=== PATIENT | female | born 1940 | race Caucasian/White ===

== ENCOUNTER → 2017-05-04 | Outpatient (CLI) | payer MEDICARE, BC ==
--- NOTE | 2017-05-05 17:07 | XCELERA REPORT ---
[address] [address] Lower Extremity Arterial Evaluation Name: XAVI MIZRA Age: 76 yrs Gender: Female : 1940 Patient Status: Outpatient Patient Location: Study Date: 05/04/2017 07:54 AM Procedure: A color flow and duplex scan of the lower extremity arteries was performed bilaterally with velocity and waveform anaylsis. Ankle brachial indicies performed. Reason For Study: ULCER Ordering Physician: EAN KENYON Performed By: Lo Mercedes Measurements and Calculations Right Left RADAR MECHANIC PSV 159.8 118.8 cm/sec Prox PFA PSV -80.5 -71.6 cm/sec Prox SFA PSV 104.8 92.3 cm/sec Mid SFA PSV -106.4 -122.6 cm/sec Dist SFA PSV -101.5 -93.0 cm/sec Prox Pop A PSV 76.6 65.1 cm/sec Dist TANNA PSV 94.3 46.8 cm/sec Dist CAR CUSTOMIZER PSV 88.8 90.8 cm/sec [place] Pedis PSV 39.0 62.6 cm/sec Right Side Arterial Evaluation Normal velocity and triphasic waveforms noted from the Common Femoral artery to the Anterior Tibial artery. Biphasic in the Posterior Tibial Dorsalis Pedis. 0-19% stenosis at the Posterior Tibial and Dorsalis Pedis arteries. Ankle Brachial index is 1.2. PPG's are normal. Left Side Arterial Evaluation Normal velocity and triphasic waveforms noted from the Common Femoral artery to the Popliteal artery. Biphasic in the infrageniculate vessels . 0-19% stenosis in the infrageniculate vessels. Ankle Brachial index was not done due to pain, presence of dressings.. Interpretation Summary Mild hemodynamically significant lesions in the bilateral lower extremities, on duplex imaging, at rest. : EAN KENYON > Antonio Pendleton
== END ==
LOC: SP 07:40
PROVIDERS: ATTEND Nurse Practitioner Family
DX: L97.222 Non-pressure chronic ulcer of left calf with fat layer exposed (principal)
CPT/HCPCS: 93925